=== PATIENT | female | born 2000 | race Caucasian/White ===

== ENCOUNTER → 2020-11-01 | Outpatient (CLI) | payer OTHER | LOC: COL.RAD 10:13 | DX: N97.9 Female infertility, unspecified (principal) ==

== ENCOUNTER → 2020-11-04 | Outpatient (CLI) | payer OTHER | LOC: COL.RAD 13:29 | DX: N97.1 Female infertility of tubal origin (principal); N97.9 Female infertility, unspecified | CPT/HCPCS: Q9967 ==

== ENCOUNTER 2022-05-24 11:15 | Emergency (ER) | payer OTHER ==
[~2022-05-24] VITALS: Ht 167.6 cm; Wt 114.5 kg
[2022-05-24 11:25] VITALS: PULSE 75; TEMP 97.4
[2022-05-24 12:17] VITALS: BP 118/78
== END 2022-05-24 12:17 | disposition home or self-care (01) ==
LOC: COL.ER 11:15
DX: O20.9 Hemorrhage in early pregnancy, unspecified (principal); Z91.040 Latex allergy status; Z3A.10 10 weeks gestation of pregnancy

== ENCOUNTER 2022-10-13 20:39 | Outpatient (CLI) | payer OTHER ==
[~2022-10-13] VITALS: Ht 167.6 cm; Wt 123.6 kg
--- NOTE | 2022-10-13 20:39 | NUR ---
Ambulatory to unit for assessment. Pt reports "i've been leaking fluid for 3 days, sometimes it gushes" Oriented to room, monitor, plan of care. Attempt SVE, pt clamps legs together, moves away, stating "it hurts so much, we don't even have sex anymore" Vaginal sweep for amniotrace, no fluid noted, amniotrace indicator with no color change. ROM plus collected. Attempt SVE with coaching, unable to reach cervix, pt doesn't tolerate exam.
[2022-10-13 21:00] VITALS: BP 125/67; PULSE 106; TEMP 98.8
--- NOTE | 2022-10-13 21:39 | NUR ---
Off monitor, up to bathroom. 2141 ROM plus negative. Off monitor. 2199 discharge instructions reviewed with pt. Questions invited andanswered. Ambulatory off unit.
== END 2022-10-13 22:00 | disposition home or self-care (01) ==
LOC: LDRO 20:39
DX: O42.913 Preterm premature rupture of membranes, unspecified as to length of time between rupture and onset of labor, third trimester (principal); Z3A.30 30 weeks gestation of pregnancy

== ENCOUNTER 2022-11-25 20:23 | Outpatient (CLI) | payer OTHER ==
[~2022-11-25] VITALS: Ht 167.6 cm; Wt 131.8 kg
--- NOTE | 2022-11-25 20:59 | NUR ---
Pt arrives ambulatory to R4 with complaints of a headache since 1400 today. Took Tylenol 1000 mg at 1600, drank 4-5 16 ounce bottles of water, a bottle of Coca-Cola, and some Gatorade and have not had relief from the headache. She does have some non-pitting edema to the lower legs and ankles, she tells this RN that it has been present for awhile and that Dr. Roth is aware of it. Pt denies any loss of fluid, vaginal bleeding, does report having some [place] ctx at times. She did see Dr. Roth on 10/25/22 for a scheduled OB appointment. Discussed plan to obtain some labwork and a UA, to get some blood pressures and monitor baby for awhile and then call the doctor to discuss the next steps. Pt verbalizes understanding.
[2022-11-25 21:00] VITALS: BP 135/71; PULSE 83; TEMP 98.4
--- NOTE | 2022-11-25 21:00 | NUR ---
RN at bedside during this time. Marked varibility noted on strip, movement noted both by palpation and audibly by this RN. Unable to determine baseline due to the marked variability at this time. RN unable to palpate ctx at this time. Pt is semi-fowlers with a left tilt at this time. Will remain at bedside to monitor.
--- NOTE | 2022-11-25 21:30 | NUR ---
RN at bedside, lab in room obtaining labwork at this time. Marked variability noted at the start of this tracing time, with RN needing to reposition US after pt repositioned to her left side for comfort and FHT were no longer tracing. RN remained at bedside attempting to obtain FHT without success. movement continues to be palpated during this time and RN unable to palpate contractions at this time. Unable to obtain baseline due to the marked variability and the break in the tracing. Continuing to attempt to get FHT.
[2022-11-25 21:43] LABS: BASO % 0.2 % (0.0-2.0); EOS # 0.2 K/mm3 (0.0-0.7); EOS % 1.4 % (0.0-4.0); GRAN # 6.9 K/mm3 (1.4-6.5); GRAN % 66.9 % (42.2-75.2); HEMATOCRIT 34.4 % (37.0-47.0); HEMOGLOBIN 11.7 g/dl (12.5-16.0); LYMPH # 2.1 K/mm3 (1.2-3.4); LYMPH % 20.6 % (20.0-51.0); MEAN CELL VOLUME 83 fl (80.0-100.0); MEAN CORPUSCULAR HEMOGLOBIN 28 pg (27-31); MEAN CORPUSCULAR HGB CONC 34 g/dl (33.0-37.0); MEAN PLATELET VOLUME 10.4 fl (7.4-10.4); MONO # 1.1 K/mm3 (0.1-0.6); MONO % 10.1 % (1.7-9.3); PLATELET COUNT 220 K/mm3 (130-400); RED BLOOD COUNT 4.15 M/mm3 (4.10-5.30); REDCELL DISTRIBUTION WIDTH-CV 13.7 % (11.5-14.5)
[2022-11-25 22:00] VITALS: BP 107/57; PULSE 79; TEMP 98.1
--- NOTE | 2022-11-25 22:00 | NUR ---
Continuing to be at bedside due to unable to keep fetus on US and FHT tracing at this time. Pt is on her left side, no contractions noted, and RN continuously attempting to obtain FHT. Obtain FHT and am able to determine a baseline during this time. Pt doing well, asks questions appropriately, this RN informs pt of the status of her tests and that I will inform her as soon as they are resulted. Pt denies any questions at this time.
[2022-11-25 22:01] LABS: ALBUMIN 2.8 gm/dL (3.5-5.0); BILIRUBIN,TOTAL 0.3 mg/dL (0.2-1.2); CALCIUM 9.1 mg/dL (8.4-10.2); CREATININE, serum 0.64 mg/dL (0.57-1.11); POTASSIUM 3.7 mmol/L (3.5-4.5)
[2022-11-25 22:30] VITALS: BP 92/55; PULSE 80
--- NOTE | 2022-11-25 22:30 | NUR ---
RN at bedside attempting to obtain FHT again after movement disrupted this tracing. Fetus with moderate variability, notable baseline, accels, and some variables noted. Pt comfortable on left side still. Does report she still has the headache but would like to know if all her test results are back and if she can get ready to go home. This RN tells her I need to contact the doctor first, then I can let her know if she can get ready to go home. Pt verbalizes understanding.
[2022-11-25 22:43] LABS: COLLECTION METHOD CLEAN CATCH
[2022-11-25 22:50] LABS: URINE APPEARANCE Hazy (CLEAR/HAZY); URINE BLOOD Negative (NEGATIVE); URINE COLOR Yellow (YELLOW); URINE GLUCOSE Negative (NEGATIVE); URINE KETONE TRACE (NEGATIVE); URINE NITRATE Negative (NEGATIVE); URINE PROTEIN(semi-quant) TRACE (NEGATIVE)
[2022-11-25 22:52] LABS: MUCOUS Present (NOT PRESENT); SQUAMOUS EPITHELIAL 20-50 /hpf (0-10); URINE BACTERIA Rare /hpf (NONE SEEN); URINE CALCIUM OXALATE CRYSTAL Present (NOT PRESENT); URINE RBC 0-2 /hpf (0-2)
[2022-11-25 23:00] VITALS: BP 111/56; PULSE 81; TEMP 98.2
--- NOTE | 2022-11-25 23:00 | NUR ---
RN at bedside attempting to obtain FHT. Pt positioning interupted tracing during this time. Pt again voices her readiness to go home, this RN tells pt her test results are all back and I am going to call the doctor shortly. Pt verbalizes understanding and no questions at this time.
== END 2022-11-25 23:20 | disposition home or self-care (01) ==
LOC: LDRO 20:23
PROVIDERS: Obstetrics & Gynecology
DX: O26.893 Other specified pregnancy related conditions, third trimester (principal); G43.909 Migraine, unspecified, not intractable, without status migrainosus; Z3A.36 36 weeks gestation of pregnancy